=== PATIENT | female | born 1950 | race Caucasian/White ===

== ENCOUNTER 2017-06-05 05:56 | Day surgery (SDC) | payer MEDICARE ==
[2017-06-05] MEDS ORDERED: DIPRIVAN 200 MG/20 ML IV ONE (05:57)
[2017-06-05] MEDS ORDERED: Ketamine HCl 50 MG/ML IV ONE (05:57)
[2017-06-05] MEDS ORDERED: Lactated Ringers 1,000 ML IV SCH (06:30)
--- NOTE | 2017-06-05 08:25 | OP ---
SURGERY DATE/TIME: 06/05/2017718 PREOPERATIVE DIAGNOSIS: Anemia. POSTOPERATIVE DIAGNOSIS: 1) Moderate gastritis. 2) Normal colon. PROCEDURES: 1) Esophagogastroduodenoscopy with biopsy. 2) Colonoscopy. SURGEON: Dr. Atwood. ANESTHESIA: Medications were given by the anesthesia department. BRIEF HISTORY: The patient is a 66 year old white female patient of Dr. Garrett who did evaluation on her and found her to be anemic. The patient was felt to need to have endoscopic evaluation for the anemia. She was appraised of the risks of the procedure including the risk of perforation, phlebitis, untoward reaction to medication, bleeding and missed lesions. The patient verbalized her understanding and desired to have the procedure performed. DESCRIPTION OF PROCEDURE: The patient was given the medications by the anesthesia department. She had continuous pulse oximetry, ECG monitoring, intermittent blood pressure monitoring and tidal CO2 monitoring during the examination. She was placed in the left lateral decubitus position. A bite block was placed and the flexible Olympus gastroscope was used to intubate the oropharynx. A view of the larynx was obtained and was normal. The scope was easily passed in the esophagus which was normal throughout its length. The stomach was entered. There was noted to be a hiatal hernia present. The stomach appeared to be erythematous but no erosions or ulcerations were encountered. The scope was passed along the greater curvature of the antrum to the pylorus which was then intubated. Duodenum inspected and found to be normal. The scope was withdrawn towards the stomach again. Retroflex view again demonstrated a hiatal hernia which appeared to be large. Biopsies were obtained from the gastric antrum and from the body of the stomach to observe for any evidence of potential for Helicobacter pylori-type organisms and confirm the presence of gastritis. The scope was removed from the patient. Next, a digital rectal examination was performed and revealed normal anal sphincter tone and no masses. The flexible Olympus pediatric colonoscope was used to intubate the rectum. A view of the colon was developed sequentially to the cecum. Upon insertion and withdrawal, including a retroflex view in the rectum, no mucosal lesions were encountered. The scope was removed from the patient who tolerated the procedure well and was sent back to OP recovery in good condition. The prep was noted to be fair to adequate.
[2017-06-05 08:30] VITALS: O2SAT 99
[2017-06-05 09:27] VITALS: BP 132/76; PULSE 69
== END 2017-06-05 09:00 | disposition home or self-care (01) ==
LOC: SDC 05:56
PROVIDERS: ATTEND Family Medicine
PROC: 0DB68ZX Excision of Stomach, Via Natural or Artificial Opening Endoscopic, Diagnostic (ICD-10-PCS; principal; 2017-06-05)
PROC: 0DJD8ZZ Inspection of Lower Intestinal Tract, Via Natural or Artificial Opening Endoscopic (ICD-10-PCS; 2017-06-05)
DX: K29.70 Gastritis, unspecified, without bleeding (principal); D64.9 Anemia, unspecified; E03.9 Hypothyroidism, unspecified; I25.10 Atherosclerotic heart disease of native coronary artery without angina pectoris
CPT/HCPCS: 00740; 00810; 36415; 88305; J2704

== ENCOUNTER 2017-09-30 15:56 | Emergency (ER) | payer MEDICARE ==
--- NOTE | 2017-09-30 16:52 | ERPHSYRPT ---
- History of Present Illness Time Seen by Provider: 09/30/17 16:49 Source: patient, family Exam Limitations: no limitations Patient Subjective Stated Complaint: pt fell off porch last night, co pain to left foot, Triage Nursing Assessment: pt alert, resp easy, skin w/d pink. has swelling and bruising to left foot and ankle , has strong pedal pulse Physician History: The patient is a 66-year-old female who complains of twisting her left ankle this morning while rushing to call 911 for neighbor. Her left ankle and left foot are both hurting and swollen. She had left foot surgery years ago. Her past medical history is significant for high cholesterol, hypothyroidism, and hypertension. Occurred: this morning Reason for Fall: tripped Injuries/Pain Location: lower extremity (left foot and ankle) Loss of Consciousness: no loss of consciousness Quality: sharpness Severity of Pain-Max: moderate Severity of Pain-Current: moderate Modifying Factors: Improves With: nothing Associated Symptoms (Fall): trouble walking Allergies/Adverse Reactions: Penicillins Allergy (Intermediate, Verified 09/30/17 16:15) Rash Home Medications: Carvedilol 12.5 mg [Coreg 12.5 mg] 12.5 mg PO BID 12/14/13 [History] Pravastatin Sodium 40 mg PO HS 12/14/13 [History] Hydrochlorothiazide 12.5 mg PO DAILY 06/03/17 [History] Levothyroxine Sodium 100 Mcg [Synthroid 100 Mcg] 100 mcg PO DAILY 06/03/17 [History] Hx Tetanus, Diphtheria Vaccination/Date Given: Yes Hx Influenza Vaccination/Date Given: Yes Hx Pneumococcal Vaccination/Date Given: Yes Immunizations Up to Date: Yes - Review of Systems Constitutional: No Fever, No Chills Eyes: No Symptoms Ears, Nose, & Throat: No Symptoms Respiratory: No Cough, No Dyspnea Cardiac: No Chest Pain, No Edema, No Syncope Abdominal/Gastrointestinal: No Abdominal Pain, No Nausea, No Vomiting, No Diarrhea Genitourinary Symptoms: No Dysuria Musculoskeletal: Fall, Injury, Joint Pain, Joint Swelling Skin: No Rash Neurological: No Dizziness, No Focal Weakness, No Sensory Changes Psychological: No Symptoms Endocrine: No Symptoms Hematologic/Lymphatic: No Symptoms Immunological/Allergic: No Symptoms All Other Systems: Reviewed and Negative - Past Medical History Pertinent Past Medical History: Yes Neurological History: Migraines ENT History: No Pertinent History Cardiac History: High Cholesterol, Hypertension, Myocardial Infarction ([place]) Respiratory History: Bronchitis, Pneumonia Endocrine Medical History: Hypothyroidism Musculoskeletal History: Osteoarthritis GI Medical History: No Pertinent History History: No Pertinent History Psycho-Social History: No Pertinent History Female Reproductive Disorders: Fibroids - Past Surgical History Past Surgical History: Yes Neuro Surgical History: No Pertinent History Cardiac: Cardiac Catheterization Respiratory: No Pertinent History Gastrointestinal: No Pertinent History Genitourinary: No Pertinent History Musculoskeletal: Joint Replacement Female Surgical History: Hysterectomy Other Surgical History: total knee replacement Right 2010,left foot - Social History Smoking Status: Never smoker Exposure to second hand smoke: No Drug Use: none Patient Lives Alone: No - Female History Hx Last Menstrual Period: post - Nursing Vital Signs Nursing Vital Signs: Initial Vital Signs Temperature 97.8 F 09/30/17 16:09 Pulse Rate 67 09/30/17 16:09 Respiratory Rate 16 09/30/17 16:09 Blood Pressure 114/75 09/30/17 16:09 O2 Sat by Pulse Oximetry 97 09/30/17 16:09 Pain Scale Pain Intensity 6 - Vince Coma Score Best Eye Response (Vince): (4) open spontaneously Best Verbal Response ([place]): (5) oriented Best Motor Response ([place]): (6) obeys commands Vince Total: 15 - Physical Exam General Appearance: no apparent distress, alert Head Injury: no evidence of injury Eye Exam: PERRL/EOMI ENT Exam: airway nml Neck Exam: normal inspection, No tenderness Respiratory/Chest Exam: normal breath sounds, No chest tenderness, No respiratory distress Cardiovascular Exam: normal heart sounds, regular rate/rhythm Gastrointestinal Exam: soft, No tenderness, No distention, No guarding, No ecchymosis Rectal Exam: not done Back Exam: normal inspection, No vertebral tenderness Extremity Exam: normal inspection, normal range of motion, pelvis stable, No deformities Neurologic Exam: alert, oriented x 3, cooperative, sensation nml, No motor deficits Skin Exam: ecchymosis (left lateral ankle), other (swelling and tenderness to left lateral malleolus) SpO2: 97 Oxygen Delivery: Room Air - Radiology Exams Foot X-ray Interpretation: Interpreted by me, Negative (neg, comp to 10/06/16.), No Fracture, No Subluxation Left Ankle X-ray Interpretation: Interpreted by me, Negative, No Fracture, No Subluxation, Nml Alignment Ordered Tests: Active Orders 24 hr Category Date Time Status ANKLE (3 VIEWS) Stat Exams 09/30/17 17:10 Taken FOOT (MINIMUM 3 VIEWS) Stat Exams 09/30/17 17:10 Taken - Progress Progress: unchanged Counseled pt/family regarding: rad results - Departure Time of Disposition: 17:38 Departure Disposition: Home Clinical Impression: Left ankle sprain Condition: Stable Critical Care Time: No Referrals: JOHNATHAN FRANKS MD [Primary Care Provider] - Additional Instructions: You have a left ankle sprain. You were given Toradol 60 mg by IM injection in the ER. An Lauro bandage was applied which you can use as needed. Take Aleve and Tylenol as needed. Elevate the ankle to help reduce swelling. Apply ice for 10-15 minutes 2-3 times a day for the next 2 days. Follow-up as needed.
[2017-09-30 17:20] VITALS: BP 163/63
[2017-09-30] MEDS ORDERED: TORAdol 30 mg Injection IM ONE (17:39)
[2017-09-30] MEDS ORDERED: TORAdol 30 mg Injection ONE (17:43)
[2017-09-30 18:14] VITALS: PULSE 88; O2SAT 96
--- NOTE | 2017-10-01 11:30 | XRAY ---
Indication: Pain following fall. Comparison: March 13, 2012. 3 views of the left ankle demonstrates mild soft tissue swelling without acute fracture, dislocation, or suspicious bony lesions. Left foot reported separately.
--- NOTE | 2017-10-01 11:30 | XRAY ---
Indication: Pain following fall. Comparison: October 06, 2016. 3 nonweightbearing views of the left foot again demonstrates old fifth metatarsal fracture with intact orthopedic screw. No new/acute bony, articular, or soft tissue abnormalities.
== END 2017-09-30 18:14 | disposition home or self-care (01) ==
LOC: ED 15:56
DX: S93.402A Sprain of unspecified ligament of left ankle, initial encounter (principal); M79.672 Pain in left foot; W17.89XA Other fall from one level to another, initial encounter; E78.00 Pure hypercholesterolemia, unspecified; I10 Essential (primary) hypertension; E03.9 Hypothyroidism, unspecified; Z79.899 Other long term (current) drug therapy
CPT/HCPCS: 73610; 73630; 96372; 99283; 99284; J1885

== ENCOUNTER 2021-11-18 09:31 | Emergency (ER) | payer MEDICARE ==
--- NOTE | 2021-11-18 10:35 | XRAY ---
Indication: Cough and weakness. Portable apical lordotic chest remains clear again with a few incidental calcified granulomas. Heart not enlarged. Bony thorax intact again with mild osteopenia, degenerative changes, dextroscoliosis, and surgical clips base of neck. No new/acute abnormalities.
--- NOTE | 2021-11-18 10:42 | ERPHSYRPT ---
- History of Present Illness Source: patient Exam Limitations: no limitations Patient Subjective Stated Complaint: weakness Triage Nursing Assessment: Patient brought back to ED via w/c and transferred self to bed. Patient A+O X3. Patient's skin pale, warm and dry. Patient complains of cough, weakness, bodyaches and fatigue since yesterday. Patient's lungs clear a/p anmol. Patient has known exposure to COVID last week. Physician History: 71 yo wf w cough/coryza/lethargy/ST x 1 day. Pt is fully vaxxed and boosted. She denies N/V/D/chest pain/melena/hematochezia/dysuria/hematuria. Timing/Duration: yesterday Cough Quality/Degree: dry cough Possible Cause: no prior episodes Modifying Factors: Improves With: coughing Associated Symptoms: cough, nasal congestion, nasal drainage, sore throat, No fever, No chills, No chest pain/soreness, No dizziness, No earache, No facial pain, No headache, No lightheadedness, No shortness of breath, No sinus infection Allergies/Adverse Reactions: Penicillins Allergy (Intermediate, Verified 11/18/21 09:46) Rash Home Medications: Carvedilol 12.5 mg [Coreg 12.5 mg] 12.5 mg PO BID 12/14/13 [History] Levothyroxine Sodium 100 Mcg [Synthroid 100 Mcg] 100 mcg PO DAILY 06/03/17 [History] hydroCHLOROthiazide [Hydrochlorothiazide] 12.5 mg PO DAILY 06/03/17 [History] Hx Tetanus, Diphtheria Vaccination/Date Given: Yes Hx Influenza Vaccination/Date Given: Yes Hx Pneumococcal Vaccination/Date Given: No Immunizations Up to Date: Yes Travel Risk - International Travel Have you traveled outside of the country in past 3 weeks: No - Coronavirus Screening Are you exhibiting any of the following symptoms?: Yes Symptoms: Cough: New Onset, Shortness of Breath, Headaches/Body Aches/Fatigue Close contact with a COVID-19 positive Pt in past 14-21 Days: Yes - Vaccine Status Have you recieved a Covid-19 vaccination: Yes Residential Property Manager: Moderna - Vaccination Dates Date of 2cond Vaccination (if applicable): 01/04/2021 Comment: Booster 08/14/2021 - Review of Systems Constitutional: No Symptoms, Fatigue, Lethargy, Malaise Eyes: No Symptoms Ears, Nose, & Throat: No Symptoms, Nose Congestion, Nose Discharge Respiratory: No Symptoms, Cough Cardiac: No Symptoms Abdominal/Gastrointestinal: No Symptoms Genitourinary Symptoms: No Symptoms Musculoskeletal: No Symptoms Skin: No Symptoms Neurological: No Symptoms Psychological: No Symptoms Endocrine: No Symptoms Hematologic/Lymphatic: No Symptoms Immunological/Allergic: No Symptoms - Past Medical History Pertinent Past Medical History: Yes Neurological History: Migraines ENT History: No Pertinent History Cardiac History: High Cholesterol, Hypertension, Myocardial Infarction ([place]) Respiratory History: Bronchitis, Pneumonia Endocrine Medical History: Hypothyroidism Musculoskeletal History: Osteoarthritis GI Medical History: No Pertinent History History: No Pertinent History Psycho-Social History: No Pertinent History Female Reproductive Disorders: Fibroids - Past Surgical History Past Surgical History: Yes Neuro Surgical History: No Pertinent History Cardiac: Cardiac Catheterization Respiratory: No Pertinent History Gastrointestinal: No Pertinent History Genitourinary: No Pertinent History Musculoskeletal: Joint Replacement Female Surgical History: Hysterectomy Other Surgical History: total knee replacement Right 2010,left foot hardware placed - Social History Smoking Status: Never smoker Exposure to second hand smoke: No Drug Use: none Patient Lives Alone: No Significant Family History: no pertinent family hx - Female History Hx Now: No - Nursing Vital Signs Nursing Vital Signs: Initial Vital Signs Temperature 99.0 F 11/18/21 09:47 Pulse Rate 98 H 11/18/21 09:47 Respiratory Rate 18 11/18/21 09:47 Blood Pressure 110/74 11/18/21 09:47 O2 Sat by Pulse Oximetry 99 11/18/21 09:47 Pain Scale Pain Intensity 5 WNL - Physical Exam General Appearance: no apparent distress Eye Exam: PERRL/EOMI, eyes nml inspection Ears, Nose, Throat Exam: normal ENT inspection, TMs normal, pharynx normal, moist mucous membranes Neck Exam: normal inspection, non-tender, supple, full range of motion, No meningismus, No mass, No Brudzinski, No Kernig's, No carotid bruit Respiratory Exam: normal breath sounds, lungs clear, airway intact, No chest tenderness, No respiratory distress Cardiovascular Exam: regular rate/rhythm, normal heart sounds, normal peripheral pulses, No murmur Gastrointestinal/Abdomen Exam: soft, normal bowel sounds, No tenderness Back Exam: normal inspection, normal range of motion, No CVA tenderness, No vertebral tenderness Extremity Exam: normal inspection, normal range of motion Neurologic Exam: alert, oriented x 3, cooperative, senior lead developer II-XII nml as tested, normal mood/affect, nml cerebellar function, nml station & gait, sensation nml, No motor deficits, No sensory deficit Skin Exam: normal color, warm, dry, No rash Lymphatic Exam: No adenopathy SpO2 Interpretation: normal SpO2: 99 O2 Delivery: Room Air - Course Nursing assessment & vital signs reviewed: Yes - Radiology Exams Chest X-ray Interpretation: Discussed w/ radiologist (NAD) Ordered Tests: Active Orders 24 hr Category Date Time Status CHEST 1 VIEW (PORTABLE) Stat Exams 11/18/21 10:16 Completed COVID AG-BINAX NOW RAPID TEST Stat Lab 11/18/21 10:25 Completed INFLUENZA A+B NELSON Stat Lab 11/18/21 10:25 Completed Lab/Rad Data: Laboratory Results 11/18/21 11/18/21 Range/Units 10:25 10:25 Influenza Type A Ag NEGATIVE (NEGATIVE) Influenza Type B Ag NEGATIVE (NEGATIVE) SARS-CoV-2 Ag (Rapid) POSITIVE A* (NEGATIVE) - Progress Counseled pt/family regarding: lab results, diagnosis, need for follow-up, rad results - Departure Departure Disposition: Home Clinical Impression: COVID-19 Condition: Stable Critical Care Time: No Referrals: JOHNATHAN FRANKS MD [Primary Care Provider] - Follow up/PCP as directed Instructions: Coronavirus Disease 2019 (COVID-19) ([place]) Additional Instructions: Get a pulse oximeter and monitor oxygen saturation 2-3 times a day Return to ER if oxygen saturation is persistently less than 90% [id number] a day/[id number] a day/Pepcid 40mg a day Follow up with your family
[2021-11-18 10:57] LABS: INFLUENZA A NEGATIVE (NEGATIVE); INFLUENZA B NEGATIVE (NEGATIVE)
[2021-11-18 10:59] LABS: COVID AG -BINAX NOW RAPID TEST POSITIVE (NEGATIVE)
[2021-11-18 11:29] VITALS: BP 118/78; PULSE 98
[2021-11-18 11:38] VITALS: O2SAT 99
== END 2021-11-18 11:43 | disposition home or self-care (01) ==
LOC: ED 09:31
DX: U07.1 COVID-19 (principal); R05.1 Acute cough; J02.9 Acute pharyngitis, unspecified; R53.83 Other fatigue; R09.81 Nasal congestion; Z20.822 Contact with and (suspected) exposure to COVID-19; E78.5 Hyperlipidemia, unspecified; I10 Essential (primary) hypertension; Z79.899 Other long term (current) drug therapy
CPT/HCPCS: 71045; 87400; 99000; 99284

== ENCOUNTER 2024-08-04 10:11 | Day surgery (SDC) | payer MEDICARE ==
--- NOTE | 2024-08-03 10:06 | HP ---
HISTORY AND PHYSICAL HISTORY OF PRESENT ILLNESS: The patient is a 73-year-old, presents with anemia. Last colonoscopy was in 2017 and was normal. That was with Dr. Roa. She sees Dr. Batres for anemia. She has been anemic for years. She has been getting some iron infusions. She does look pale today. She states she is fatigued. She does have a CAT scan scheduled for August. PAST MEDICAL HISTORY: Hypertension, hyperlipidemia, thyroid. HOME MEDICATIONS: B12, B2, carvedilol, levothyroxine, atorvastatin, hydrochlorothiazide. ALLERGIES: Penicillin. PAST SURGICAL HISTORY: Thyroidectomy. SOCIAL HISTORY: Negative. FAMILY HISTORY: Negative. REVIEW OF SYSTEMS: CONSTITUTIONAL: Denies fever or chills. CHEST: Denies shortness of breath. CARDIOVASCULAR: Denies chest pain. ABDOMEN: Denies abdominal pain. PHYSICAL EXAMINATION: GENERAL: No acute distress. CARDIOVASCULAR: Regular rate and rhythm. RESPIRATORY: Nonlabored. No shortness of breath. ABDOMEN: Soft. IMPRESSION: Anemia. PLAN: EGD, colonoscopy with Dr. Rajiv Ruiz. This report was dictated for Dr. Ruiz by Ciera Barahona NP.
[2024-08-04] MEDS ORDERED: Lactated Ringers 1,000 ML IV ONE (10:26)
[2024-08-04] MEDS: Lactated Ringers 1,000 ML IV SCH (10:27)
[2024-08-04] MEDS ORDERED: DIPRIVAN 200 MG/20 ML IV ONE ×2 (14:04→14:16)
[2024-08-04] MEDS ORDERED: Xylocaine-Mpf 2% 5 Ml Vial ONE (14:04)
[2024-08-04] MEDS ORDERED: Versed 2 MG/2 ML Injection ONE (14:08)
[2024-08-04 15:03] VITALS: RESP 18; TEMP 96.8; O2SAT 97
[2024-08-04 15:14] VITALS: BP 119/84; PULSE 61
--- NOTE | 2024-08-07 21:27 | OP ---
SURGERY DATE/TIME: 08/04/2024 [id number] PREOPERATIVE DIAGNOSIS: Anemia. POSTOPERATIVE DIAGNOSES: 1) Esophagogastroduodenoscopy, mild gastritis. 2) Colonoscopy, grossly normal. PROCEDURE: EGD and colonoscopy. SURGEON: Rajiv Ruiz MD INDICATIONS: Patient has anemia. DESCRIPTION OF PROCEDURE AND FINDINGS: Patient was taken to endoscopy. Left lateral decubitus position. Scope introduced. Esophagus normal down to EG junction. Minimal esophagitis. Fundus, body, and antrum, there was mild gastritis. Pylorus normal. Duodenal bulb normal. Second portion normal, satisfactorily from below. Scope withdrawn. Anal digital examination was satisfactory. Scope was introduced. Scope advanced over to the cecum. Base of the cecum, ileocecal valve, and appendiceal orifice were normal. Ascending, hepatic, transverse, splenic, descending, sigmoid, rectum and anus normal exam. Patient tolerated the procedure satisfactorily. Follow up in 5 years.
== END 2024-08-04 15:15 | disposition home or self-care (01) ==
LOC: SDC 10:11
PROVIDERS: ATTEND Surgery
DX: K29.70 Gastritis, unspecified, without bleeding (principal); D64.9 Anemia, unspecified
CPT/HCPCS: J2250; J2704

== ENCOUNTER 2024-09-17 15:30 | Emergency (ER) | payer MEDICARE ==
--- NOTE | 2024-09-17 18:23 | ERPHSYRPT ---
- History of Present Illness Time Seen by Provider: 09/17/24 18:22 Source: patient, family Exam Limitations: no limitations Physician History: This is a 73-year-old white female patient who has known right lower molar dental fracture in April 2024. This morning, she woke up with tender swollen right lower jaw. The greatest amount of tenderness and swelling is in the area of the fractured tooth. Patient had a low-grade fever at home. Patient contacted 3 different dental offices and has an appointment at all 3. Each 1 is scheduled out till November but she is hoping that one of them will be able to see her sometime next week with a cancellation. Patient has no difficulty swallowing. She has no stridor. She has no difficulty breathing. Patient has a history of hyperlipidemia, hypothyroidism, hypertension, migraine headaches and bronchitis. Patient states that she has had a rash with penicillin and Rocephin in the past. She denies chest pain and she denies shortness of breath. Patient states that she is just trying to use ice pack to the area. She avoids ibuprofen because it upsets her stomach. Timing/Duration: abrupt onset, this morning Severity: mild ENT Location: dental (Moderate) Prearrival Treatment: no prearrival treatment Modifying Factors: Improves With: other (Chewing worsens the pain) Associated Symptoms: facial pain/swelling (Right side lower jaw), tooth pain (Right fractured molar) Allergies/Adverse Reactions: Penicillins Allergy (Intermediate, Verified 09/17/24 18:42) Rash Home Medications: Carvedilol 12.5 mg [Coreg 12.5 mg] 12.5 mg PO BID 12/14/13 [History] Levothyroxine Sodium 100 Mcg [Synthroid 100 Mcg] 112 mcg PO DAILY 06/03/17 [History] Alendronate Sodium 70 mg [Fosamax 70 MG] 70 mg PO WEEKLY 09/17/24 [History] Atorvastatin Calcium 10 mg PO DAILY 09/17/24 [History] hydroCHLOROthiazide [Hydrochlorothiazide] 12.5 mg PO DAILY 09/17/24 [History] Hx Tetanus, Diphtheria Vaccination/Date Given: Yes Hx Influenza Vaccination/Date Given: Yes Hx Pneumococcal Vaccination/Date Given: No Travel Risk - International Travel Have you traveled outside of the country in past 3 weeks: No - Emerging Infectious Disease Are you exhibiting symptoms associated with any current EIDs: No - Review of Systems Constitutional: No Symptoms Eyes: No Symptoms Respiratory: No Symptoms Cardiac: No Symptoms Abdominal/Gastrointestinal: No Symptoms Genitourinary Symptoms: No Symptoms Musculoskeletal: No Symptoms Skin: No Symptoms Neurological: No Symptoms Psychological: No Symptoms Endocrine: No Symptoms Hematologic/Lymphatic: No Symptoms Immunological/Allergic: No Symptoms All Other Systems: Reviewed and Negative - Past Medical History Pertinent Past Medical History: Yes Neurological History: Migraines ENT History: No Pertinent History Cardiac History: High Cholesterol, Hypertension, Myocardial Infarction ([place]) Respiratory History: Bronchitis, Pneumonia Endocrine Medical History: Hypothyroidism Musculoskeletal History: Osteoarthritis GI Medical History: No Pertinent History History: No Pertinent History Psycho-Social History: No Pertinent History Female Reproductive Disorders: Fibroids - Past Surgical History Past Surgical History: Yes Neuro Surgical History: No Pertinent History Cardiac: Cardiac Catheterization Respiratory: No Pertinent History Gastrointestinal: No Pertinent History Genitourinary: No Pertinent History Musculoskeletal: Joint Replacement Female Surgical History: Hysterectomy Other Surgical History: total knee replacement Right 2010,left foot hardware placed. thyroidectomy Significant Family History: no pertinent family hx - Social History Smoking Status: Never smoker Exposure to second hand smoke: No Drug Use: none Patient Lives Alone: No - Nursing Vital Signs Nursing Vital Signs: Initial Vital Signs Temperature 99.5 F 09/17/24 18:23 Pulse Rate 85 09/17/24 18:23 Respiratory Rate 18 09/17/24 18:23 Blood Pressure 148/81 09/17/24 18:23 O2 Sat by Pulse Oximetry 100 09/17/24 18:23 Pain Scale Pain Intensity 10 - Physical Exam General Appearance: no apparent distress, alert, anxiety Eye Exam: bilateral eye: normal inspection, PERRL, EOMI Ear Exam: bilateral ear: auricle normal Nasal Exam: normal inspection Throat Exam: dental tenderness (Right lower molar fracture down to the gingival line with gingival swelling and tenderness to palpation. No expressible pus in this area.), moist mucus membranes, No uvula swelling, No voice changes Neck Exam: normal inspection, non-tender, supple, full range of motion Cardiovascular/Respiratory Exam: chest non-tender, no respiratory distress Abdominal Exam: non-tender Neurologic Exam: alert, oriented x 3, cooperative, valet II-XII nml as tested, nml cerebellar function, nml station & gait, sensation nml Skin Exam: normal color, warm, dry SpO2 Interpretation: normal O2 Delivery: Room Air - Course Nursing assessment & vital signs reviewed: Yes Ordered Tests: Medication Summary Discontinued Medications Generic Name Dose Route Start Last Admin Trade Name Blessing PRN Reason Stop Dose Admin Clindamycin HCl 300 mg 09/17/24 19:24 Clindamycin Hcl 150 Mg Capsule PO 09/17/24 19:25 STAT ONE Oxycodone/Acetaminophen 1 tab 09/17/24 19:23 Oxycodone Hcl/Apap 5 Mg/325 Mg Tablet PO 09/17/24 19:24 STAT STA - Progress Progress: unchanged Progress Note: 09/17/24 19:29 My medical decision making and the assignment of low complexity to this patient's medical issue today is based on review of the patient's past medical history, review of the patient's medication list, reviewed patient drug allergy list, history present illness and physical findings on examination. The workup in this patient does not require radiographic or laboratory studies. Differential diagnosis includes but is not limited to dental fracture, dental infection Counseled pt/family regarding: diagnosis, need for follow-up Medical Desision Making - Diagnostic Testing Diagnostic test were ordered, analyzed, and reviewed by me: No - Risk of complications Low Risk: Low risk of morbidity from additional dx testing or treatment - Departure Departure Disposition: Home Clinical Impression: Fractured tooth, Dental infection Condition: Stable Critical Care Time: No Referrals: JOHNATHAN FRANKS MD [Primary Care Provider] - Follow up/PCP as directed Additional Instructions: Drink plenty of fluids. Take your antibiotics as prescribed. Call in urgent care dental clinic if you are unable to secure an appointment to see a dentist next week. Prescriptions: Clindamycin HCl 150 mg [Cleocin 150 mg Capsule] 2 cap PO QID #56 cap
[2024-09-17 18:39] VITALS: TEMP 99.5
[2024-09-17] MEDS ORDERED: CLEOCIN 150 MG CAPSULE ONE (19:27)
[2024-09-17] MEDS ORDERED: PERCOCET TABLET 5/325MG ONE ×2 (19:27→19:34)
[2024-09-17] MEDS: PERCOCET TABLET 5/325MG PO STA ×2 (19:28→19:36)
[2024-09-17] MEDS: CLEOCIN 150 MG CAPSULE PO ONE (19:28)
[2024-09-17 19:39] VITALS: BP 143/55; PULSE 80; RESP 18; O2SAT 99
== END 2024-09-17 19:52 | disposition home or self-care (01) ==
LOC: ED 15:30
DX: S02.5XXA Fracture of tooth (traumatic), initial encounter for closed fracture (principal); K04.7 Periapical abscess without sinus; K08.89 Other specified disorders of teeth and supporting structures; E78.5 Hyperlipidemia, unspecified; I10 Essential (primary) hypertension; Z79.899 Other long term (current) drug therapy
CPT/HCPCS: 99282; 99283; A9270-GY

== ENCOUNTER 2024-11-11 16:31 | Observation (INO) | payer MEDICARE ==
--- NOTE | 2024-11-11 19:48 | ERPHSYRPT ---
- History of Present Illness Time Seen by Provider: 11/11/24 19:36 Historian: patient Exam Limitations: no limitations Patient Subjective Stated Complaint: states vomiting and diarrhea for at least a week. unable to hold any fluids down. no fever, states tested negation flu and covid. Triage Nursing Assessment: pt ambuled to room 9, slow steady gait, nauseous, given emesis bag, rocking in bed d/t nausea, intermittent coughing and gagging. VSS. resp easy, lungs clear, resp easy Physician History: 74-year-old female with history of hypertension, hyperlipidemia, hypothyroidism presented in the ER with 1 week nausea dry heaving, gen abd pain 3/10 , loose watery stool with no hematochezia , negative flu/covid at pcp today, feels dehydrated fatigued and tired. Denies any chest pain palpitations or shortness of breath but feels thirsty. Denies any known sick contact. Allergies/Adverse Reactions: Penicillins Allergy (Intermediate, Verified 09/17/24 18:42) Rash Home Medications: Carvedilol 12.5 mg [Coreg 12.5 mg] 12.5 mg PO BID 12/14/13 [History] Levothyroxine Sodium 100 Mcg [Synthroid 100 Mcg] 112 mcg PO DAILY 06/03/17 [History] Alendronate Sodium 70 mg [Fosamax 70 MG] 70 mg PO WEEKLY 09/17/24 [History] Atorvastatin Calcium 10 mg PO DAILY 09/17/24 [History] hydroCHLOROthiazide [Hydrochlorothiazide] 12.5 mg PO DAILY 09/17/24 [History] Hx Tetanus, Diphtheria Vaccination/Date Given: No Hx Influenza Vaccination/Date Given: Yes Hx Pneumococcal Vaccination/Date Given: No Immunizations Up to Date: Yes Travel Risk - International Travel Have you traveled outside of the country in past 3 weeks: No - Emerging Infectious Disease Are you exhibiting symptoms associated with any current EIDs: No - Review of Systems Constitutional: Fatigue, Weakness Eyes: No Symptoms Ears, Nose, & Throat: No Symptoms Respiratory: Cough Cardiac: No Symptoms Abdominal/Gastrointestinal: Abdominal Pain, Nausea, Diarrhea Genitourinary Symptoms: No Symptoms Musculoskeletal: Arthralgias Skin: No Symptoms Neurological: No Symptoms Hematologic/Lymphatic: No Symptoms Immunological/Allergic: No Symptoms - Past Medical History Pertinent Past Medical History: Yes Neurological History: Migraines ENT History: No Pertinent History Cardiac History: High Cholesterol, Hypertension, Myocardial Infarction ([place]) Respiratory History: Bronchitis, Pneumonia Endocrine Medical History: Hypothyroidism Musculoskeletal History: Osteoarthritis GI Medical History: No Pertinent History History: No Pertinent History Psycho-Social History: No Pertinent History Female Reproductive Disorders: Fibroids Other Medical History: iron deficiency - Past Surgical History Past Surgical History: Yes Neuro Surgical History: No Pertinent History Cardiac: Cardiac Catheterization Respiratory: No Pertinent History Gastrointestinal: No Pertinent History Genitourinary: No Pertinent History Musculoskeletal: Joint Replacement Female Surgical History: Hysterectomy Other Surgical History: total knee replacement Right 2010,left foot hardware placed. thyroidectomy Significant Family History: no pertinent family hx - Social History Smoking Status: Never smoker Exposure to second hand smoke: No Drug Use: none Patient Lives Alone: No - Social Determinants of Health Will the patient participate in the screening: Yes Do you worry about a steady place to live?: No Do you have any problems with any of the following?: No known problems In the past 12 months,have you had to go without utilities?: No Transportation Issues: No Has anyone in your support network made you feel unsafe?: No Have you or anyone in your house had to go without enough: No - Nursing Vital Signs Nursing Vital Signs: Initial Vital Signs Temperature 98.2 F 11/11/24 17:50 Pulse Rate 109 H 11/11/24 17:50 Respiratory Rate 18 11/11/24 17:50 Blood Pressure 113/68 11/11/24 17:50 O2 Sat by Pulse Oximetry 99 11/11/24 17:50 Pain Scale Pain Intensity 0 - Physical Exam General Appearance: no apparent distress, alert Eye Exam: PERRL/EOMI Ears, Nose, Throat Exam: normal ENT inspection Neck Exam: normal inspection, non-tender, supple, full range of motion Respiratory Exam: normal breath sounds, lungs clear Cardiovascular Exam: normal heart sounds, tachycardia Gastrointestinal/Abdomen Exam: soft, normal bowel sounds, tenderness (mild gen ), No distention, No guarding Back Exam: normal inspection Extremity Exam: normal inspection, normal range of motion Neurologic Exam: alert, oriented x 3, cooperative Skin Exam: normal color SpO2 Interpretation: normal SpO2: 98 O2 Delivery: Room Air Ordered Tests: Active Orders 24 hr Category Date Time Status IV Insertion STAT Care 11/11/24 19:45 Active NPO (ED) STAT Care 11/11/24 19:45 Active ABDOMEN AND PELVIS W/0 CONTRAS [CT] Stat Exams 11/11/24 19:45 Taken BLOOD CULTURE Stat Lab 11/11/24 20:50 Received CBC W DIFF Stat Lab 11/11/24 19:40 Completed CMP Stat Lab 11/11/24 19:40 Completed LIPASE Stat Lab 11/11/24 19:40 Completed Lactic Acid Stat Lab 11/11/24 20:10 Completed MAGNESIUM Stat Lab 11/11/24 19:50 Completed Manual Differential NC Stat Lab 11/11/24 19:40 Completed PROCALCITONIN Stat Lab 11/11/24 19:50 Completed UA W/RFX UR CULTURE Stat Lab 11/11/24 19:45 Ordered Medication Summary Generic Name Dose Route Start Last Admin Trade Name Freq PRN Reason Stop Dose Admin Levofloxacin/Dextrose 750 mg in 150 mls @ 100 mls/hr 11/11/24 22:06 Levofloxacin 750mg/150ml D5w IV 11/11/24 23:35 STAT STA Metronidazole 500 mg in 100 mls @ 200 mls/hr 11/11/24 22:06 11/11/24 22:26 Flagyl 500 Mg Ivpb IV 11/11/24 22:35 200 ml/hr STAT STA 200 mls/hr Administration Sodium Chloride 1,000 mls @ 125 mls/hr 11/11/24 22:15 11/11/24 22:24 Sodium Chloride 0.9% 1000 Ml IV 12/11/24 22:14 125 mls/hr .Q8H JENNIFER Administration Discontinued Medications Generic Name Dose Route Start Last Admin Trade Name Marquezq PRN Reason Stop Dose Admin Sodium Chloride 1,000 mls @ 999 mls/hr 11/11/24 19:45 11/11/24 21:51 Sodium Chloride 0.9% 1000 Ml IV 11/11/24 20:45 Infused .Q1H1M STA Infusion Sodium Chloride Confirm 11/11/24 19:49 Sodium Chloride 0.9% 1000 Ml Administered 11/11/24 19:50 Dose 1,000 mls @ ud .ROUTE .STK-MED ONE Metronidazole Confirm 11/11/24 22:21 Flagyl 500 Mg Ivpb Administered 11/11/24 22:22 Dose 500 mg in 100 mls @ ud IV .STK-MED ONE Ondansetron HCl 4 mg 11/11/24 19:45 11/11/24 19:55 Ondansetron Hcl 4 Mg/2 Ml Vial IV 11/11/24 19:46 4 mg STAT ONE Administration Ondansetron HCl Confirm 11/11/24 19:49 Ondansetron Hcl 4 Mg/2 Ml Vial Administered 11/11/24 19:50 Dose 4 mg .ROUTE .STK-MED ONE Potassium Chloride 40 meq 11/11/24 20:11 11/11/24 20:38 Potassium Chloride Tab 10 Meq Tab PO 11/11/24 20:12 40 meq STAT ONE Administration Potassium Chloride Confirm 11/11/24 20:36 Potassium Chloride Tab 10 Meq Tab Administered 11/11/24 20:37 Dose 40 meq .ROUTE .STK-MED ONE Lab/Rad Data: Laboratory Result Diagrams 11/11/24 19:40 11/11/24 19:40 Laboratory Results 11/11/24 11/11/24 11/11/24 Range/Units 20:10 19:50 19:40 WBC (3.98-10.04) x10^3/uL RBC (3.93-5.22) x10^6/uL Hgb (11.2-15.7) g/dL Hct (34.1-44.9) % MCV (79.4-94.8) fL MCH (25.6-32.2) pg MCHC (32.2-35.5) g/dL RDW (11.7-14.4) % Plt Count (182-369) x10^3/uL MPV (9.4-12.3) fL Segmented Neutrophils (34.0-71.1) % Band Neutrophils (0.0-2.0) % Lymphocytes (Manual) (19.3-51.7) % Monocytes (Manual) (4.7-12.5) % Platelet Estimate (NORMAL) RBC Morphology Anisocytosis Sodium 131 L (135-145) mmol/L Potassium 3.0 L* (3.5-5.1) mmol/L Chloride 98 (98-107) mmol/L Carbon Dioxide 23 (22-30) mmol/L Anion Gap 12.6 (5-15) MEQ/L BUN 24 H (7-17) mg/dL Creatinine 1.04 (0.52-1.04) mg/dL Estimated GFR 56.1 ML/MIN Glucose 146 H (74-106) mg/dL Lactic Acid 1.9 (0.4-2.0) Calcium 8.6 (8.4-10.2) mg/dL Magnesium 2.1 (1.6-2.3) mg/dL Total Bilirubin 0.80 (0.2-1.3) mg/dL AST 23 (14-36) U/L ALT 18 (0-35) U/L Alkaline Phosphatase 162 H (38-126) U/L Serum Total Protein 6.7 (6.3-8.2) g/dL Albumin 3.7 (3.5-5.0) g/dL Lipase 20 L (23-300) U/L Procalcitonin 0.369 H (0.030-0.080) ng/mL 11/11/24 Range/Units 19:40 WBC 25.3 H* (3.98-10.04) x10^3/uL RBC 3.70 L (3.93-5.22) x10^6/uL Hgb 9.7 L (11.2-15.7) g/dL Hct 30.0 L (34.1-44.9) % MCV 81.1 (79.4-94.8) fL MCH 26.2 (25.6-32.2) pg MCHC 32.3 (32.2-35.5) g/dL RDW 18.3 H (11.7-14.4) % Plt Count 596 H (182-369) x10^3/uL MPV 9.1 L (9.4-12.3) fL Segmented Neutrophils 75 H (34.0-71.1) % Band Neutrophils 15 H (0.0-2.0) % Lymphocytes (Manual) 4 L (19.3-51.7) % Monocytes (Manual) 6 (4.7-12.5) % Platelet Estimate INCREASED (NORMAL) RBC Morphology ABNORMAL Anisocytosis 2+ Sodium (135-145) mmol/L Potassium (3.5-5.1) mmol/L Chloride (98-107) mmol/L Carbon Dioxide (22-30) mmol/L Anion Gap (5-15) MEQ/L BUN (7-17) mg/dL Creatinine (0.52-1.04) mg/dL Estimated GFR ML/MIN Glucose (74-106) mg/dL Lactic Acid (0.4-2.0) Calcium (8.4-10.2) mg/dL Magnesium (1.6-2.3) mg/dL Total Bilirubin (0.2-1.3) mg/dL AST (14-36) U/L ALT (0-35) U/L Alkaline Phosphatase (38-126) U/L Serum Total Protein (6.3-8.2) g/dL Albumin (3.5-5.0) g/dL Lipase (23-300) U/L Procalcitonin (0.030-0.080) ng/mL - Progress Progress: improved Progress Note: 11/11/24 22:34 74-year-old is evaluated in the ER for 1 week history of nausea dry heaving, diarrhea/loose stools. Decreased oral intake and feeling weak fatigued tired and dehydrated. She is given fluids and symptomatic treatment, on reevaluation she is feeling much better. No peritoneal signs on repeated evaluation. Workup showed white count of 25, lactate of 1.9 and mildly elevated procalcitonin of 0.3. Chemistries with mildly low potassium of 3.0, started on oral replacement, has normal magnesium. CT abdomen pelvis finding consistent with colitis, patient did have a bowel movement while in the ER and it was soft. Less likely C. difficile colitis and patient does not have any history of recent antibiotics intake. I have started her on Levaquin and Flagyl. Will continue with IV fluids and I believe patient will benefit with observation admission. I have shared the results of workup with patient and family and plan of admission which they understand and agree. Discussed with hospitalist Dr. Hester, reviewed history, workup and agreed with admission. Discussed with : Other (Dr. Hester hospitalist) Will see patient in: hospital (observation) Counseled pt/family regarding: lab results, diagnosis, rad results Medical Desision Making - Independent Historian Additional History obtained from: Spouse, Child - Discussion of managment Care discussed with:: hospitalist Reviewed:: Test results Agreed on:: Treatment plan, place in obs Will see patient: in hospital - Diagnostic Testing Diagnostic test were ordered, analyzed, and reviewed by me: Yes Radiological Interpretation: Reviewed by me, Teleradiologist Report - Risk of complications The pt has a mod risk of morbidity or mortality based on: Need for prescription drug management The pt has a high risk of morbidity or mortality based on: Decision regarding hospitilization or escalation of hosp level of care - Departure Departure Disposition: Observation Clinical Impression: Infectious colitis, Hypokalemia Condition: Stable Critical Care Time: No Referrals: JOHNATHAN FRANKS MD [Primary Care Provider] - Follow up/PCP as directed
[2024-11-11] MEDS ORDERED: Zofran 4 MG/2 ML VIAL ONE (19:49)
[2024-11-11] MEDS ORDERED: Sodium Chloride 0.9% 1000 ML 1,000 ML ONE (19:49)
[2024-11-11 19:50] LABS: Hemoglobin 9.7 g/dL (11.2-15.7); Mean Cell Volume 81.1 fL (79.4-94.8); Mean Corpuscular Hemoglobin 26.2 pg (25.6-32.2); Mean Corpuscular Hgb Concent. 32.3 g/dL (32.2-35.5); Mean Platelet Volume 9.1 fL (9.4-12.3); Platelet Count 596 x10^3/uL (182-369); Red Cell Distribution Width 18.3 % (11.7-14.4)
[2024-11-11] MEDS: Sodium Chloride 0.9% 1000 ML 1,000 ML IV STA (19:53)
[2024-11-11 19:54] LABS: ALBUMIN 3.7 g/dL (3.5-5.0); ANION GAP 12.6 MEQ/L (5-15); BILIRUBIN,TOTAL 0.8 mg/dL (0.2-1.3); Calcium 8.6 mg/dL (8.4-10.2); Creatinine 1 1.04 mg/dL (0.52-1.04); EST GLOMERULAR FILTRATION RATE 56.1 ML/MIN; Total Protein 6.7 g/dL (6.3-8.2)
[2024-11-11] MEDS: Zofran 4 MG/2 ML VIAL IV ONE (19:55)
[2024-11-11 20:10] LABS: White Blood Count 25.3 x10^3/uL (3.98-10.04)
[2024-11-11] MEDS ORDERED: Klor Con ONE (20:36)
[2024-11-11] MEDS: Klor Con PO ONE (20:38)
[2024-11-11 21:16] LABS: MAGNESIUM 2.1 mg/dL (1.6-2.3); PROCALCITONIN 0.369 ng/mL (0.030-0.080)
[2024-11-11] MEDS ORDERED: FLAGYL 500 MG IVPB 500 MG/100 ML BAG IV ONE (22:21)
[2024-11-11] MEDS: Sodium Chloride 0.9% 1000 ML 1,000 ML IV SCH (22:24)
[2024-11-11 22:26] LABS: ANISOCYTOSIS 2+; BAND 15 % (0.0-2.0); Lymphocytes 4 % (19.3-51.7); Monocyte 6 % (4.7-12.5); Neutrophils 75 % (34.0-71.1); Platelet Estimate INCREASED (NORMAL); Total Cells Counted 100
[2024-11-11] MEDS: FLAGYL 500 MG IVPB 500 MG/100 ML BAG IV STA (22:26)
--- NOTE | 2024-11-11 23:09 | PCM.HP ---
History of Present Illness - Chief Complaint Chief Complaint: Infectious colitis, hypokalemia Date: 11/11/24 History of Present Illness: is a 74 year old female With past medical history significant for hypertension, hyperlipidemia, who came to ER complaining of nausea vomiting and inability to tolerate anything p.o. for last 1 week duration.Patient told me she has been sick for almost a week complaining of having vomiting without any abdominal pain. She did complain of having multiple loose bowel movement. She is not able to keep anything down. Denied any chest pain shortness of breath no other symptoms reported . In the ER initial blood pressure was 113/68 patient was afebrile with pulse of 109. As well as blood workup concern white cell count 25.3 hemoglobin 9.7 platelets 596. Sodium 131 potassium 3.0 chloride 98 bicarb 23 BUN 24 creatinine 1.04 lactic acid 1.9 magnesium 2.[address] abdomen pelvis consistent with colitis patient admitted for acute colitis - Review of Systems All Other Systems: Reviewed and Negative (14 systems reviewed and marked ve except mentioned in [facility]UNI) Medications & Allergies Home Medications: Home Medication List Carvedilol 12.5 mg [Coreg 12.5 mg] 12.5 mg PO BID 12/14/13 [History Confirmed 11/11/24] Levothyroxine Sodium 100 Mcg [Synthroid 100 Mcg] 112 mcg PO DAILY 06/03/17 [History Confirmed 11/11/24] Alendronate Sodium 70 mg [Fosamax 70 MG] 70 mg PO WEEKLY 09/17/24 [History Confirmed 11/11/24] Atorvastatin Calcium 10 mg PO DAILY 09/17/24 [History Confirmed 11/11/24] hydroCHLOROthiazide [Hydrochlorothiazide] 12.5 mg PO DAILY 09/17/24 [History Confirmed 11/11/24] Allergies/Adverse Reactions: Allergies Allergy/AdvReac Type Severity Reaction Status Date / Time Penicillins Allergy Intermediate Rash Verified 09/17/24 18:42 - Past Medical History Past Medical History: Yes Neurological History: Migraines ENT History: No Pertinent History Cardiac History: High Cholesterol, Hypertension, Myocardial Infarction ([place]) Respiratory History: Bronchitis, Pneumonia Endocrine Medical History: Hypothyroidism Musculoskelatal History: Osteoarthritis GI Medical History: No Pertinent History History: No Pertinent History Pyscho-Social History: No Pertinent History Reproductive Disorders: Fibroids Comment: iron deficiency - Past Surgical History Past Surgical History: Yes Neuro Surgical History: No Pertinent History Cardiac History: Cardiac Catheterization Respiratory Surgery: No Pertinent History GI Surgical History: No Pertinent History Genitourinary Surgical Hx: No Pertinent History Musculskeletal Surgical Hx: Joint Replacement Female Surgical History: Hysterectomy Other Surgical History: total knee replacement Right 2011,left foot hardware placed. thyroidectomy Significant Family History: no pertinent family hx - Social History Smoking Status: Never smoker Exposure to second hand smoke: No Alcohol: None Drug Use: none - Social Determinants of Health Will the patient participate in the screening: Yes Do you worry about a steady place to live?: No Do you have any problems with any of the following?: No known problems In the past 12 months,have you had to go without utilities?: No Have you or anyone in your house had to go without enough: No Transportation Issues: No Has anyone in your support network made you feel unsafe?: No - Physical Exam Vital Signs: Vital Signs - 24 hr Temp Pulse Resp BP BP Pulse Ox 11/11/24 22:37 98 11/11/24 21:45 108 H 18 110/54 98 11/11/24 19:00 91/61 11/11/24 18:30 101/51 98 11/11/24 18:00 109/55 98 11/11/24 17:50 98.2 F 109 H 18 113/68 99 Additional Findings: 11/11/24 23:08 HEENT Old aged, average built in no distress NECK Supple,no thyromegaly, CVS S1+S2 + 0, no murmers RESP Bilateral equal air entry without Crepts/Wheezes heard GIT Soft non tender,non distended Skin, No rah, no Bruises LEGS No Edema PSYCH Normal,mood, judgement and insight NEURO AOX3, no focal deficit Results - Labs Lab/Micro Results: Lab Results-Last 24 Hours 11/11/24 11/11/24 11/11/24 Range/Units 19:40 19:40 19:50 WBC 25.3 H* (3.98-10.04) x10^3/uL RBC 3.70 L (3.93-5.22) x10^6/uL Hgb 9.7 L (11.2-15.7) g/dL Hct 30.0 L (34.1-44.9) % MCV 81.1 (79.4-94.8) fL MCH 26.2 (25.6-32.2) pg MCHC 32.3 (32.2-35.5) g/dL RDW 18.3 H (11.7-14.4) % Plt Count 596 H (182-369) x10^3/uL MPV 9.1 L (9.4-12.3) fL Segmented Neutrophils 75 H (34.0-71.1) % Band Neutrophils 15 H (0.0-2.0) % Lymphocytes (Manual) 4 L (19.3-51.7) % Monocytes (Manual) 6 (4.7-12.5) % Platelet Estimate INCREASED (NORMAL) RBC Morphology ABNORMAL Anisocytosis 2+ Sodium 131 L (135-145) mmol/L Potassium 3.0 L* (3.5-5.1) mmol/L Chloride 98 (98-107) mmol/L Carbon Dioxide 23 (22-30) mmol/L Anion Gap 12.6 (5-15) MEQ/L BUN 24 H (7-17) mg/dL Creatinine 1.04 (0.52-1.04) mg/dL Estimated GFR 56.1 ML/MIN Glucose 146 H (74-106) mg/dL Lactic Acid (0.4-2.0) Calcium 8.6 (8.4-10.2) mg/dL Magnesium 2.1 (1.6-2.3) mg/dL Total Bilirubin 0.80 (0.2-1.3) mg/dL AST 23 (14-36) U/L ALT 18 (0-35) U/L Alkaline Phosphatase 162 H (38-126) U/L Serum Total Protein 6.7 (6.3-8.2) g/dL Albumin 3.7 (3.5-5.0) g/dL Lipase 20 L (23-300) U/L Procalcitonin 0.369 H (0.030-0.080) ng/mL 11/11/24 Range/Units 20:10 WBC (3.98-10.04) x10^3/uL RBC (3.93-5.22) x10^6/uL Hgb (11.2-15.7) g/dL Hct (34.1-44.9) % MCV (79.4-94.8) fL MCH (25.6-32.2) pg MCHC (32.2-35.5) g/dL RDW (11.7-14.4) % Plt Count (182-369) x10^3/uL MPV (9.4-12.3) fL Segmented Neutrophils (34.0-71.1) % Band Neutrophils (0.0-2.0) % Lymphocytes (Manual) (19.3-51.7) % Monocytes (Manual) (4.7-12.5) % Platelet Estimate (NORMAL) RBC Morphology Anisocytosis Sodium (135-145) mmol/L Potassium (3.5-5.1) mmol/L Chloride (98-107) mmol/L Carbon Dioxide (22-30) mmol/L Anion Gap (5-15) MEQ/L BUN (7-17) mg/dL Creatinine (0.52-1.04) mg/dL Estimated GFR ML/MIN Glucose (74-106) mg/dL Lactic Acid 1.9 (0.4-2.0) Calcium (8.4-10.2) mg/dL Magnesium (1.6-2.3) mg/dL Total Bilirubin (0.2-1.3) mg/dL AST (14-36) U/L ALT (0-35) U/L Alkaline Phosphatase (38-126) U/L Serum Total Protein (6.3-8.2) g/dL Albumin (3.5-5.0) g/dL Lipase (23-300) U/L Procalcitonin (0.030-0.080) ng/mL - Radiology Impressions Radiology Exams & Impressions: Radiology Procedures Category Date Time Status ABDOMEN AND PELVIS W/0 CONTRAS [CT] Stat Exams 11/11/24 19:45 Taken Assessment/Plan (1) Infectious colitis Current Visit: Yes Status: Acute Code(s): A09 - INFECTIOUS GASTROENTERITIS AND COLITIS, UNSPECIFIED (2) Hypokalemia Current Visit: Yes Status: Acute Code(s): E87.6 - HYPOKALEMIA (3) Hyperlipidemia Current Visit: No Status: Acute Code(s): E78.5 - HYPERLIPIDEMIA, UNSPECIFIED (4) Hypertension Current Visit: Yes Status: Acute Code(s): I10 - ESSENTIAL (PRIMARY) HYPERTENSION (5) Hypertension Current Visit: Yes Status: Acute Code(s): I10 - ESSENTIAL (PRIMARY) HYPERTENSION Telemedicine Encounter - Telemedicine Encounter Telemedicine Encounter: The entirety of this encounter was performed via Telemedicine"This visit was performed using real-time audio and video connection between my location and thepatients locationwith the assistance of a surrogateat the patients location. Written or verbal consent was obtained from the patient/guardian to perform this visit using[employer] technology. Any patient questions regarding the telemedicine interaction were answered. Sepsis present upon admission Patient was having SIRS positive (leukocytosis,Tachycardia ) source colitis, Lactate reported less than 2 Continue antibiotics keep following up cultures Acute colitis CT showed acute colitis without abscess perforation Continue antibiotics Will keep on clear liquid diet for now Pain management Colonoscopy outpatient once infection gets over Hyponatremia/hypokalemia Due to ongoing nausea vomiting and inability to tolerate p.o. Continue fluids Will replace potassium and recheck in the morning Diarrhea Will rule out for C. difficile Continue supportive therapy with IV fluids Hypertension Blood pressure towards softer side Will keep holding home BP meds for now Hypothyroidism Resumed Levothyroxine Hyperlipidemia Continue home meds DVT prophylaxis SCD/Lovenox CODE STATUS full Discharge planning pending clinical stability. I have reviewed patient lab vitals and imaging in detail question and concerns were addressed
[2024-11-11] MEDS ORDERED: MORPHINE SULFATE 2 MG INJ IV PRN (23:29)
[2024-11-11] MEDS ORDERED: Sodium Chloride 0.9% 1000 ML 1,000 ML IV SCH (23:30)
[2024-11-12] MEDS: Levofloxacin 500MG/100ML D5W 500 MG/100 ML BAG IV SCH ×2 (00:14→21:42)
[2024-11-12] MEDS ORDERED: Klor Con ONE (01:22)
[2024-11-12] MEDS: Klor Con PO ONE (01:27)
[2024-11-12] MEDS: PROTONIX 40 MG IV IV SCH ×2 (01:27→21:42)
[2024-11-12] MEDS: POTASSIUM CHLORIDE 20 mEq IN WATER 100ML 20 MEQ/100 ML BAG IV ONE (01:31)
[2024-11-12] MEDS: LEVOFLOXACIN 750MG/150ML D5W 750 MG/150 ML BAG IV STA (01:31)
--- NOTE | 2024-11-12 05:28 | PCM.NOTE ---
Date and Time: 11/12/24521 Subjective Assessment: is a 74 year old female With past medical history significant for hypertension, hyperlipidemia, who came to ER complaining of nausea vomiting and inability to tolerate anything p.o. for last 1 week duration.Patient told me she has been sick for almost a week complaining of having vomiting without any abdominal pain. She did complain of having multiple loose bowel movement. She is not able to keep anything down. Denied any chest pain shortness of breath no other symptoms reported . In the ER initial blood pressure was 113/68 patient was afebrile with pulse of 109. As well as blood workup concern white cell count 25.3 hemoglobin 9.7 platelets 596. Sodium 131 potassium 3.0 chloride 98 bicarb 23 BUN 24 creatinine 1.04 lactic acid 1.9 magnesium 2.[address] abdomen pelvis consistent with colitis patient admitted for acute colitis. CXR with right costophrenic angle infiltrate versus atelectasis. 11/12: Met with patient bedside. Endorses continued nausea/vomiting and diarrhea (5-6 episodes this morning). Unable to tolerate a diet. Hypokalemia resolved. WBC down-trending now at 22.3. Plan for continued abx levaquin/flagyl and supportive care. - Review of Systems Constitutional: Weakness Eyes: No Symptoms Ears, Nose, & Throat: No Symptoms Respiratory: No Symptoms Cardiac: No Symptoms Abdominal/Gastrointestinal: Abdominal Pain, Nausea, Vomiting, Diarrhea Genitourinary Symptoms: No Symptoms Musculoskeletal: No Symptoms Skin: No Symptoms Neurological: No Symptoms Psychological: No Symptoms Endocrine: No Symptoms Hematologic/Lymphatic: No Symptoms Immunological/Allergic: No Symptoms Objective Exam General Appearance: no apparent distress Neurologic Exam: alert, oriented x 3, cooperative Skin Exam: pale Eye Exam: PERRL Ears, Nose, Throat Exam: normal ENT inspection Neck Exam: normal inspection Respiratory Exam: normal breath sounds, lungs clear Cardiovascular Exam: regular rate/rhythm, normal heart sounds Gastrointestinal/Abdomen Exam: tenderness (diffuse) Extremity Exam: normal inspection, normal range of motion Pelvic Exam: deferred Rectal Exam: deferred Objective Data Vital Signs: Vital Signs - 24 hr Temp Pulse Resp BP BP Pulse Ox 11/12/24 04:00 18 11/12/24 00:44 102 H 18 98 11/12/24 00:00 18 11/11/24 22:59 97.0 F 108 H 18 109/35 99 11/11/24 22:37 98 11/11/24 21:45 108 H 18 110/54 98 11/11/24 19:00 91/61 11/11/24 18:30 101/51 98 11/11/24 18:00 109/55 98 11/11/24 17:50 98.2 F 109 H 18 113/68 99 Pain Assessment - Last Documented Pain Intensity 0 Intake and Output: Intake & Output 11/09/24 11/10/24 11/11/24 11/12/24 11:59 11:59 11:59 11:59 Weight 75.2 kg Lab Results: Lab Results-Last 24 Hours 11/11/24 11/11/24 11/11/24 Range/Units 19:40 19:40 19:50 WBC 25.3 H* (3.98-10.04) x10^3/uL RBC 3.70 L (3.93-5.22) x10^6/uL Hgb 9.7 L (11.2-15.7) g/dL Hct 30.0 L (34.1-44.9) % MCV 81.1 (79.4-94.8) fL MCH 26.2 (25.6-32.2) pg MCHC 32.3 (32.2-35.5) g/dL RDW 18.3 H (11.7-14.4) % Plt Count 596 H (182-369) x10^3/uL MPV 9.1 L (9.4-12.3) fL Segmented Neutrophils 75 H (34.0-71.1) % Band Neutrophils 15 H (0.0-2.0) % Lymphocytes (Manual) 4 L (19.3-51.7) % Monocytes (Manual) 6 (4.7-12.5) % Platelet Estimate INCREASED (NORMAL) RBC Morphology ABNORMAL Anisocytosis 2+ Sodium 131 L (135-145) mmol/L Potassium 3.0 L* (3.5-5.1) mmol/L Chloride 98 (98-107) mmol/L Carbon Dioxide 23 (22-30) mmol/L Anion Gap 12.6 (5-15) MEQ/L BUN 24 H (7-17) mg/dL Creatinine 1.04 (0.52-1.04) mg/dL Estimated GFR 56.1 ML/MIN Glucose 146 H (74-106) mg/dL Lactic Acid (0.4-2.0) Calcium 8.6 (8.4-10.2) mg/dL Magnesium 2.1 (1.6-2.3) mg/dL Total Bilirubin 0.80 (0.2-1.3) mg/dL AST 23 (14-36) U/L ALT 18 (0-35) U/L Alkaline Phosphatase 162 H (38-126) U/L Serum Total Protein 6.7 (6.3-8.2) g/dL Albumin 3.7 (3.5-5.0) g/dL Lipase 20 L (23-300) U/L Procalcitonin 0.369 H (0.030-0.080) ng/mL 11/11/24 Range/Units 20:10 WBC (3.98-10.04) x10^3/uL RBC (3.93-5.22) x10^6/uL Hgb (11.2-15.7) g/dL Hct (34.1-44.9) % MCV (79.4-94.8) fL MCH (25.6-32.2) pg MCHC (32.2-35.5) g/dL RDW (11.7-14.4) % Plt Count (182-369) x10^3/uL MPV (9.4-12.3) fL Segmented Neutrophils (34.0-71.1) % Band Neutrophils (0.0-2.0) % Lymphocytes (Manual) (19.3-51.7) % Monocytes (Manual) (4.7-12.5) % Platelet Estimate (NORMAL) RBC Morphology Anisocytosis Sodium (135-145) mmol/L Potassium (3.5-5.1) mmol/L Chloride (98-107) mmol/L Carbon Dioxide (22-30) mmol/L Anion Gap (5-15) MEQ/L BUN (7-17) mg/dL Creatinine (0.52-1.04) mg/dL Estimated GFR ML/MIN Glucose (74-106) mg/dL Lactic Acid 1.9 (0.4-2.0) Calcium (8.4-10.2) mg/dL Magnesium (1.6-2.3) mg/dL Total Bilirubin (0.2-1.3) mg/dL AST (14-36) U/L ALT (0-35) U/L Alkaline Phosphatase (38-126) U/L Serum Total Protein (6.3-8.2) g/dL Albumin (3.5-5.0) g/dL Lipase (23-300) U/L Procalcitonin (0.030-0.080) ng/mL Radiology Exams: Radiology Procedures Category Date Time Status ABDOMEN AND PELVIS W/0 CONTRAS [CT] Stat Exams 11/11/24 19:45 Taken Assessment/Plan (1) Sepsis Current Visit: Yes Status: Acute Assessment & Plan: -Met criteria with HR, leukocytosis with initial WBC at 25.3, and known source of infection -LA WNL -trend WBC -reviewed at 22.3< 25.3 -Will order cxr with right infiltrate -UA -pending collection -blood cultures pending -CT reviewed consistent with colitis -continue levaquin/flagyl (2) Acute colitis Current Visit: Yes Status: Acute Assessment & Plan: -see sepsis Code(s): K52.9 - NONINFECTIVE GASTROENTERITIS AND COLITIS, UNSPECIFIED (3) Hyponatremia Current Visit: Yes Status: Acute Assessment & Plan: -IVF -sodium level reviewed and improving at 132 -tele Code(s): E87.1 - HYPO-OSMOLALITY AND HYPONATREMIA (4) Hypokalemia Current Visit: Yes Status: Acute Assessment & Plan: -Replenish potassium per protocol -potassium level reviewed at 3.5- add supplementation daily - resolved -monitor renal/lytes daily -tele Code(s): E87.6 - HYPOKALEMIA (5) Diarrhea Current Visit: Yes Status: Acute Assessment & Plan: -CDiff pending -stool culture/o&P, giardia -immodium once cdiff ruled out Code(s): R19.7 - DIARRHEA, UNSPECIFIED (6) HTN (hypertension) Current Visit: Yes Status: Acute Assessment & Plan: -soft on admission - hold bp meds for now and monitor closely Code(s): I10 - ESSENTIAL (PRIMARY) HYPERTENSION (7) Hypothyroid Current Visit: Yes Status: Acute Assessment & Plan: -continue levothyroxine Code(s): E03.9 - HYPOTHYROIDISM, UNSPECIFIED (8) Metabolic acidosis Current Visit: Yes Status: Acute Assessment & Plan: -most likely secondary to diarrhea -co2 reviewed at 18 -continue IVF supportive care -consider bicarb if worsening Code(s): E87.20 - ACIDOSIS, UNSPECIFIED (9) HLD (hyperlipidemia) Current Visit: Yes Status: Acute Assessment & Plan: -continue statin VTE: lovenox Dispo: 1-2 days Code: full Code(s): E78.5 - HYPERLIPIDEMIA, UNSPECIFIED
[2024-11-12] MEDS: FLAGYL 500 MG IVPB 500 MG/100 ML BAG IV SCH (06:28)
[2024-11-12] MEDS: Zofran 4 MG/2 ML VIAL IV PRN (07:45)
--- NOTE | 2024-11-12 08:15 | XRAY ---
Indication: Abdominal pain and diarrhea. Multiple contiguous axial images obtained through the abdomen and pelvis without contrast. Comparison: August 25, 2024 Lung bases clear again with incidental left base calcified granuloma. Heart not enlarged. Again large hiatal hernia with partial intrathoracic stomach. Noncontrasted stomach and bowel loops appear nonobstructed. New mild circumferential wall thickening ascending/transverse colon and lesser degree descending colon with pericolonic stranding favoring colitis. There is moderate hemicolon fecal debris. Again sigmoid diverticulosis and hysterectomy. No free fluid/air. Stable tiny right lobe hepatic cyst and small bilateral renal cysts. Remaining liver, gallbladder, pancreas, spleen, adrenal glands, kidneys, ureters, and bladder are unremarkable for noncontrast exam. There remains mild aortic calcifications without AAA. Osseous structures intact again with osteopenia, mild/moderate multilevel lumbar degenerative spondylosis, grade 1 L4 listhesis, and moderate levorotoscoliosis. Impression: 1. New CT features favoring colitis. No free fluid/air. 2. New right hemicolon fecal stasis. 3. Chronic findings including hiatal hernia with partial intrathoracic stomach, colonic diverticulosis, hepatic/bilateral renal cysts, arteriosclerotic disease, and chronic bony findings.
--- NOTE | 2024-11-12 08:17 | XRAY ---
Indication: Sepsis. Comparison: November 18, 2021 Portable chest demonstrates new minimal right costophrenic angle infiltrate versus atelectasis. Remaining heart and lungs unremarkable again with left lung calcified granuloma. Bony thorax intact again with osteopenia, degenerative changes, dextroscoliosis, and surgical clips base of neck.
[2024-11-12 09:25] LABS: Hematocrit 26.7 % (34.1-44.9); Hemoglobin 8.4 g/dL (11.2-15.7); Mean Cell Volume 82.9 fL (79.4-94.8); Mean Corpuscular Hemoglobin 26.1 pg (25.6-32.2); Mean Corpuscular Hgb Concent. 31.5 g/dL (32.2-35.5); Mean Platelet Volume 9.4 fL (9.4-12.3); Platelet Count 533 x10^3/uL (182-369); Red Blood Count 3.22 x10^6/uL (3.93-5.22); Red Cell Distribution Width 18.5 % (11.7-14.4); White Blood Count 22.3 x10^3/uL (3.98-10.04)
[2024-11-12] MEDS: SYNTHROID 112 MCG PO SCH (09:38)
[2024-11-12] MEDS: Zocor 10MG PO SCH (09:38)
[2024-11-12] MEDS: ENOXAPARIN SODIUM SQ SCH (09:38)
[2024-11-12 09:49] LABS: ANION GAP 12.4 MEQ/L (5-15); Calcium 7.4 mg/dL (8.4-10.2); Creatinine 1 0.89 mg/dL (0.52-1.04); EST GLOMERULAR FILTRATION RATE 67.6 ML/MIN; Potassium 3.5 mmol/L (3.5-5.1)
[2024-11-12] MEDS: Klor Con PO SCH (13:04)
[2024-11-12] MEDS: Compazine 10 MG/2 ML IV PRN (14:39)
[2024-11-12 17:04] LABS: 027 TOX PROD PRESUMPTIVE NEGATIVE (NEGATIVE)
[2024-11-12 17:27] LABS: TOXIGENIC C. DIFF ORG POSITIVE (NEGATIVE)
--- NOTE | 2024-11-13 05:28 | PCM.NOTE ---
Date and Time: 11/13/24 0528 Subjective Assessment: is a 74 year old female With past medical history significant for hypertension, hyperlipidemia, who came to ER complaining of nausea vomiting and inability to tolerate anything p.o. for last 1 week duration.Patient told me she has been sick for almost a week complaining of having vomiting without any abdominal pain. She did complain of having multiple loose bowel movement. She is not able to keep anything down. Denied any chest pain shortness of breath no other symptoms reported . In the ER initial blood pressure was 113/68 patient was afebrile with pulse of 109. As well as blood workup concern white cell count 25.3 hemoglobin 9.7 platelets 596. Sodium 131 potassium 3.0 chloride 98 bicarb 23 BUN 24 creatinine 1.04 lactic acid 1.9 magnesium 2.[address] abdomen pelvis consistent with colitis patient admitted for acute colitis. CXR with right costophrenic angle infiltrate versus atelectasis. 11/12: Met with patient bedside. Endorses continued nausea/vomiting and diarrhea (5-6 episodes this morning). Unable to tolerate a diet. Hypokalemia resolved. WBC down-trending now at 22.3. Plan for continued abx levaquin/flagyl and supportive care. 11/13: Met with patient bedside. Improvement in symptoms today. Nausea improved. No vomiting. No diarrhea overnight. Is requesting a soft diet today. WBC count improving. Acidosis and hypokalemia on labs this morning. Will start bicarb drip and potassium protocol. Plan to recheck labs this afternoon. - Review of Systems Constitutional: No Symptoms Eyes: No Symptoms Ears, Nose, & Throat: No Symptoms Respiratory: No Symptoms Cardiac: No Symptoms Abdominal/Gastrointestinal: Nausea Genitourinary Symptoms: No Symptoms Musculoskeletal: No Symptoms Skin: No Symptoms Neurological: No Symptoms Psychological: No Symptoms Endocrine: No Symptoms Hematologic/Lymphatic: No Symptoms Immunological/Allergic: No Symptoms Objective Exam General Appearance: no apparent distress Neurologic Exam: alert, oriented x 3, cooperative Skin Exam: pale Eye Exam: PERRL Ears, Nose, Throat Exam: normal ENT inspection Neck Exam: normal inspection Respiratory Exam: normal breath sounds, lungs clear Cardiovascular Exam: regular rate/rhythm, normal heart sounds Gastrointestinal/Abdomen Exam: soft, normal bowel sounds Extremity Exam: normal inspection Back Exam: normal inspection Pelvic Exam: deferred Objective Data Vital Signs: Vital Signs - 24 hr Temp Pulse Resp BP Pulse Ox 11/13/24 00:00 18 98 11/12/24 20:00 97.5 F 94 H 16 99/56 97 11/12/24 16:00 97.4 F 88 20 90/53 99 11/12/24 12:00 97.3 F 103 H 20 114/55 95 11/12/24 08:00 97.2 F 110 H 21 113/55 99 Pain Assessment - Last Documented Pain Intensity 0 Intake and Output: Intake & Output 11/10/24 11/11/24 11/12/24 11/13/24 11:59 11:59 11:59 11:59 Intake Total 888 1750 Output Total 1 Balance 888 1749 Weight 75.2 kg Lab Results: Lab Results-Last 24 Hours 11/12/24 11/12/24 11/12/24 Range/Units 07:58 07:58 16:24 WBC 22.3 H (3.98-10.04) x10^3/uL RBC 3.22 L (3.93-5.22) x10^6/uL Hgb 8.4 L (11.2-15.7) g/dL Hct 26.7 L (34.1-44.9) % MCV 82.9 (79.4-94.8) fL MCH 26.1 (25.6-32.2) pg MCHC 31.5 L (32.2-35.5) g/dL RDW 18.5 H (11.7-14.4) % Plt Count 533 H (182-369) x10^3/uL MPV 9.4 (9.4-12.3) fL Sodium 132 L (135-145) mmol/L Potassium 3.5 (3.5-5.1) mmol/L Chloride 105 (98-107) mmol/L Carbon Dioxide 18 L (22-30) mmol/L Anion Gap 12.4 (5-15) MEQ/L BUN 22 H (7-17) mg/dL Creatinine 0.89 (0.52-1.04) mg/dL Estimated GFR 67.6 ML/MIN Glucose 128 H (74-106) mg/dL Calcium 7.4 L (8.4-10.2) mg/dL C. difficile Screen POSITIVE (NEGATIVE) C.difficile [id number] PRESUMPTIVE NEGATIVE (NEGATIVE) Radiology Exams: Radiology Procedures Category Date Time Status ABDOMEN AND PELVIS W/0 CONTRAS [CT] Stat Exams 11/11/24 19:45 Completed CHEST 1 VIEW (PORTABLE) Routine Exams 11/12/24 07:00 Completed Assessment/Plan (1) Sepsis Current Visit: Yes Status: Acute Assessment & Plan: -Met criteria with HR, leukocytosis with initial WBC at 25.3, and known source of infection -LA WNL -trend WBC -reviewed at 22.3< 25.3 - cxr with right infiltrate -UA -pending collection -blood cultures pending -CT reviewed consistent with colitis -continue levaquin/flagyl 11/13: -WBC reviewed and improved at 13.7 -continue levaquin/flagyl -FLD- ADAT -bcult with NGTD -CDiff negative (2) Acute colitis Current Visit: Yes Status: Acute Assessment & Plan: -see sepsis Code(s): K52.9 - NONINFECTIVE GASTROENTERITIS AND COLITIS, UNSPECIFIED (3) Hyponatremia Current Visit: Yes Status: Acute Assessment & Plan: -IVF -sodium level reviewed and improving at 132 -tele Code(s): E87.1 - HYPO-OSMOLALITY AND HYPONATREMIA (4) Hypokalemia Current Visit: Yes Status: Acute Assessment & Plan: -Replenish potassium per protocol -potassium level reviewed at 3.5- add supplementation daily - resolved -monitor renal/lytes daily -tele 11/13: -Replenish per protocol, potassium level reviewed at 3.1 -recheck this afternoon Code(s): E87.6 - HYPOKALEMIA (5) Diarrhea Current Visit: Yes Status: Acute Assessment & Plan: -CDiff pending -stool culture/o&P, giardia -immodium once cdiff ruled out 11/13: -Diarrhea resolved -CDiff negative Code(s): R19.7 - DIARRHEA, UNSPECIFIED (6) HTN (hypertension) Current Visit: Yes Status: Acute Assessment & Plan: -soft on admission - hold bp meds for now and monitor closely Code(s): I10 - ESSENTIAL (PRIMARY) HYPERTENSION (7) Hypothyroid Current Visit: Yes Status: Acute Assessment & Plan: -continue levothyroxine Code(s): E03.9 - HYPOTHYROIDISM, UNSPECIFIED (8) Metabolic acidosis Current Visit: Yes Status: Acute Assessment & Plan: -most likely secondary to diarrhea -co2 reviewed at 18 -continue IVF supportive care -consider bicarb if worsening 11/13: -Co2 level reviewed at 16- will start bicarb drip -Recheck labs this afternoon Code(s): E87.20 - ACIDOSIS, UNSPECIFIED (9) HLD (hyperlipidemia) Current Visit: Yes Status: Acute Assessment & Plan: -continue statin VTE: lovenox Dispo: 1-2 days Code: full (2) Acute colitis Current Visit: Yes Status: Acute Code(s): K52.9 - NONINFECTIVE GASTROENTERITIS AND COLITIS, UNSPECIFIED (3) Hyponatremia Current Visit: Yes Status: Acute Code(s): E87.1 - HYPO-OSMOLALITY AND HYPONATREMIA (4) Hypokalemia Current Visit: Yes Status: Acute Code(s): E87.6 - HYPOKALEMIA (5) Diarrhea Current Visit: Yes Status: Acute Code(s): R19.7 - DIARRHEA, UNSPECIFIED (6) HTN (hypertension) Current Visit: Yes Status: Acute Code(s): I10 - ESSENTIAL (PRIMARY) HYPERTENSION (7) Hypothyroid Current Visit: Yes Status: Acute Code(s): E03.9 - HYPOTHYROIDISM, UNSPECIFIED (8) Metabolic acidosis Current Visit: Yes Status: Acute Code(s): E87.20 - ACIDOSIS, UNSPECIFIED (9) HLD (hyperlipidemia) Current Visit: Yes Status: Acute Code(s): E78.5 - HYPERLIPIDEMIA, UNSPECIFIED
[2024-11-13 07:06] LABS: BASOPHIL % 0.4 % (0.1-1.2); Basophil (Absolute #) 0.05 x10^3/uL (0.01-0.08); Eosinophil % 2.3 % (0.7-5.8); Eosinophil (Absolute #) 0.32 x10^3/uL (0.04-0.36); Hematocrit 26.8 % (34.1-44.9); Hemoglobin 8.4 g/dL (11.2-15.7); IMMATURE GRAN # 0.05 x10^3u/L (0.001-0.031); IMMATURE GRAN % 0.4 % (0.001-0.429); Lymphocyte (Absolute #) 0.83 x10^3/uL (1.18-3.74); Lymphocytes % 6.1 % (19.3-51.7); Mean Cell Volume 82.5 fL (79.4-94.8); Mean Corpuscular Hemoglobin 25.8 pg (25.6-32.2); Mean Corpuscular Hgb Concent. 31.3 g/dL (32.2-35.5); Mean Platelet Volume 9.2 fL (9.4-12.3); Monocytes % 10.3 % (4.7-12.5); Neutrophil % 80.5 % (34.0-71.1); Platelet Count 564 x10^3/uL (182-369); Red Blood Count 3.25 x10^6/uL (3.93-5.22); Red Cell Distribution Width 18.6 % (11.7-14.4); White Blood Count 13.7 x10^3/uL (3.98-10.04)
[2024-11-13 07:21] LABS: ALBUMIN 2.7 g/dL (3.5-5.0); ANION GAP 10.4 MEQ/L (5-15); BILIRUBIN,TOTAL 0.5 mg/dL (0.2-1.3); Calcium 7.2 mg/dL (8.4-10.2); Creatinine 1 0.71 mg/dL (0.52-1.04); EST GLOMERULAR FILTRATION RATE 88.6 ML/MIN; Total Protein 5.3 g/dL (6.3-8.2)
[2024-11-13 07:22] LABS: Appearance Clear (Clear); Ketones Negative (Negative); Leukocyte Esterase Small (Negative); Nitrite Negative (Negative); Ph 5.5 (4.6-8.0); Protein,Urine Dip 30 (Negative); Urobilinogen 0.2 mg/dL (0.2)
[2024-11-13 07:23] LABS: Bacteria Few /HPF (None Seen); Bilirubin Small (Negative); Blood Negative (Negative); Epithelial Cells Few /HPF (None Seen); Glucose, Urine Negative (Negative); Mucus Rare /HPF (NEGATIVE); RBC 0-2 /HPF (0-5)
[2024-11-13 07:26] LABS: Potassium 3.1 mmol/L (3.5-5.1)
[2024-11-13] MEDS: Sodium Bicarbonate 50 MEQ/50 ML VIAL*** 150 MEQ in Dextrose 5%/Water IV Soln. 1000 ML 1... IV SCH (08:24)
[2024-11-13] MEDS: POTASSIUM CHLORIDE 20 mEq IN WATER 100ML 100 ML IV SCH (08:24)
[2024-11-13 15:26] LABS: ANION GAP 9.3 MEQ/L (5-15); Creatinine 1 0.72 mg/dL (0.52-1.04); EST GLOMERULAR FILTRATION RATE 87.1 ML/MIN
[2024-11-13 15:30] LABS: Potassium 2.9 mmol/L (3.5-5.1)
[2024-11-13] MEDS: K-LYTE PO SCH (16:50)
[2024-11-13] MEDS ORDERED: Klor Con PO SCH (18:00)
[2024-11-14 05:49] LABS: Absolute Neutrophil Ct (ANC) 6.78 x10^3/uL (1.56-6.13); BASOPHIL % 0.7 % (0.1-1.2); Basophil (Absolute #) 0.06 x10^3/uL (0.01-0.08); Eosinophil % 3.5 % (0.7-5.8); Hematocrit 27.5 % (34.1-44.9); Hemoglobin 8.7 g/dL (11.2-15.7); IMMATURE GRAN # 0.04 x10^3u/L (0.001-0.031); IMMATURE GRAN % 0.5 % (0.001-0.429); Lymphocyte (Absolute #) 0.76 x10^3/uL (1.18-3.74); Lymphocytes % 8.8 % (19.3-51.7); Mean Cell Volume 82.3 fL (79.4-94.8); Mean Corpuscular Hgb Concent. 31.6 g/dL (32.2-35.5); Monocyte (Absolute #) 0.65 x10^3/uL (0.24-0.86); Monocytes % 7.6 % (4.7-12.5); Neutrophil % 78.9 % (34.0-71.1); Platelet Count 614 x10^3/uL (182-369); Red Blood Count 3.34 x10^6/uL (3.93-5.22); Red Cell Distribution Width 18.9 % (11.7-14.4); White Blood Count 8.6 x10^3/uL (3.98-10.04)
[2024-11-14 07:05] LABS: ALBUMIN 2.9 g/dL (3.5-5.0); ANION GAP 10.5 MEQ/L (5-15); BILIRUBIN,TOTAL 0.4 mg/dL (0.2-1.3); Calcium 7.8 mg/dL (8.4-10.2); Creatinine 1 0.78 mg/dL (0.52-1.04); EST GLOMERULAR FILTRATION RATE 79.2 ML/MIN; MAGNESIUM 2.2 mg/dL (1.6-2.3); Potassium 3.7 mmol/L (3.5-5.1); Total Protein 5.6 g/dL (6.3-8.2)
[2024-11-14 11:24] VITALS: BP 90/57; PULSE 89; TEMP 98; O2SAT 97
[2024-11-14 12:04] VITALS: RESP 21
--- NOTE | 2024-11-14 12:22 | PCM.DS ---
Discharge Summary Date of Admission: 11/11/24 22:56 Date of Discharge: 11/14/24 Admitting Physician: NELSON CHURCHILL MD Primary Care Provider: GOLDEN,JOHNATHAN Allergies Allergies Penicillins Allergy (Intermediate, Verified 09/17/24 18:42) [facility] Summary - Hospital Course Hospital Course: is a 74 year old female With past medical history significant for hypertension, hyperlipidemia, who came to ER on 11/11/24 complaining of nausea vomiting and inability to tolerate anything p.o. for last 1 week duration. She reported she has been sick for almost a week complaining of having vomiting without any abdominal pain. She did complain of having multiple loose bowel movement. She was not able to keep anything down. Denied any chest pain short ness of breath no other symptoms reported. In the ER initial blood pressure was 113/68 patient was afebrile with pulse of 109. As well as blood workup concern white cell count 25.3 hemoglobin 9.7 platelets 596. Sodium 131 potassium 3.0 chloride 98 bicarb 23 BUN 24 creatinine 1.04 lactic acid 1.9 magnesium 2.[address] abdomen pelvis consistent with colitis patient admitted for acute colitis. CXR with right costophrenic angle infiltrate versus atelectasis. She has improvement in symptoms today. Nausea improved and no vomiting. No diarrhea overnight. Tolerated a soft diet today. She is requesting to d/c home. Labs overall improved. Platelets 614 and she reports she has an upcoming appointment with Dr. WYMAN- oncology/hematology. Will continue OP anti biotics. She denies CP, SOB, abd pain, N/V/D. - Vitals & Intake/Output Vital Signs: Vital Signs Temperature 98.0 F 11/14/24 11:24 Pulse Rate 89 11/14/24 11:24 Respiratory Rate 21 11/14/24 12:00 Blood Pressure 90/57 11/14/24 11:24 O2 Sat by Pulse Oximetry 97 11/14/24 11:24 Intake & Output: Intake & Output 11/12/24 11/13/24 11/14/24 11/15/24 11:59 11:59 11:59 11:59 Intake Total 888 3610 2616 Output Total 1 Balance 888 1349 2616 Weight 75.2 kg - Lab Result Diagrams: 11/14/24 05:50 11/14/24 05:50 Lab Results-Last 24 Hrs: Lab Results-Last 24 Hours 11/13/24 11/13/24 11/13/24 Range/Units 15:05 15:32 20:55 WBC (3.98-10.04) x10^3/uL RBC (3.93-5.22) x10^6/uL Hgb (11.2-15.7) g/dL Hct (34.1-44.9) % MCV (79.4-94.8) fL MCH (25.6-32.2) pg MCHC (32.2-35.5) g/dL RDW (11.7-14.4) % Plt Count (182-369) x10^3/uL MPV (9.4-12.3) fL Gran % (34.0-71.1) % Immature Gran % (Auto) (0.001-0.429) % Nucleat RBC Rel Count (0.00-0.2) % Eos # (Auto) (0.04-0.36) x10^3/uL Immature Gran # (Auto) (0.001-0.031) x10^3u/L Absolute Lymphs (auto) (1.18-3.74) x10^3/uL Absolute Monos (auto) (0.24-0.86) x10^3/uL Absolute Nucleated RBC (0.00-0.012) x10^3u/L Lymphocytes % (19.3-51.7) % Monocytes % (4.7-12.5) % Eosinophils % (0.7-5.8) % Basophils % (0.1-1.2) % Absolute Granulocytes (1.56-6.13) x10^3/uL Basophils # (0.01-0.08) x10^3/uL Sodium 134 L (135-145) mmol/L Potassium 2.9 L* 3.8 D (3.5-5.1) mmol/L Chloride 106 (98-107) mmol/L Carbon Dioxide 22 (22-30) mmol/L Anion Gap 9.3 (5-15) MEQ/L BUN 8 (7-17) mg/dL Creatinine 0.72 (0.52-1.04) mg/dL Estimated GFR 87.1 ML/MIN Glucose 123 H (74-106) mg/dL Calcium 7.0 L (8.4-10.2) mg/dL Magnesium 2.0 (1.6-2.3) mg/dL Total Bilirubin (0.2-1.3) mg/dL AST (14-36) U/L ALT (0-35) U/L Alkaline Phosphatase (38-126) U/L Serum Total Protein (6.3-8.2) g/dL Albumin (3.5-5.0) g/dL 11/14/24 11/14/24 Range/Units 05:50 05:50 WBC 8.6 (3.98-10.04) x10^3/uL RBC 3.34 L (3.93-5.22) x10^6/uL Hgb 8.7 L (11.2-15.7) g/dL Hct 27.5 L (34.1-44.9) % MCV 82.3 (79.4-94.8) fL MCH 26.0 (25.6-32.2) pg MCHC 31.6 L (32.2-35.5) g/dL RDW 18.9 H (11.7-14.4) % Plt Count 614 H (182-369) x10^3/uL MPV 9.0 L (9.4-12.3) fL Gran % 78.9 H (34.0-71.1) % Immature Gran % (Auto) 0.5 H (0.001-0.429) % Nucleat RBC Rel Count 0.0 (0.00-0.2) % Eos # (Auto) 0.30 (0.04-0.36) x10^3/uL Immature Gran # (Auto) 0.04 H (0.001-0.031) x10^3u/L Absolute Lymphs (auto) 0.76 L (1.18-3.74) x10^3/uL Absolute Monos (auto) 0.65 (0.24-0.86) x10^3/uL Absolute Nucleated RBC 0.00 (0.00-0.012) x10^3u/L Lymphocytes % 8.8 L (19.3-51.7) % Monocytes % 7.6 (4.7-12.5) % Eosinophils % 3.5 (0.7-5.8) % Basophils % 0.7 (0.1-1.2) % Absolute Granulocytes 6.78 H (1.56-6.13) x10^3/uL Basophils # 0.06 (0.01-0.08) x10^3/uL Sodium 136 (135-145) mmol/L Potassium 3.7 (3.5-5.1) mmol/L Chloride 106 (98-107) mmol/L Carbon Dioxide 22 (22-30) mmol/L Anion Gap 10.5 (5-15) MEQ/L BUN 6 L (7-17) mg/dL Creatinine 0.78 (0.52-1.04) mg/dL Estimated GFR 79.2 ML/MIN Glucose 99 (74-106) mg/dL Calcium 7.8 L (8.4-10.2) mg/dL Magnesium 2.2 (1.6-2.3) mg/dL Total Bilirubin 0.40 (0.2-1.3) mg/dL AST 22 (14-36) U/L ALT 17 (0-35) U/L Alkaline Phosphatase 107 (38-126) U/L Serum Total Protein 5.6 L (6.3-8.2) g/dL Albumin 2.9 L (3.5-5.0) g/dL Micro Results-Entire Visit: Microbiology 11/12/24 16:23 Ova and Parasite Result 1 - Final Stool Not Reportable Ova and Parasite Result 2 - Final Not Reportable Ova and Parasite Result 3 - Final Not Reportable Ova and Parasite Result 4 - Final Not Reportable Antimicrobic Susceptibility - Final Not Reportable 11/11/24 20:40 Blood Culture - Preliminary Blood - Procedures and Test Procedures and Tests throughout Hospitalization: Therapy Orders & Screens 11/12/24 00:43 Respiratory Therapy Consult ONCE Comment: Reason For Exam: Diagnosis: Infectious colitis, hypokalemia Discharge Exam General Appearance: no apparent distress, alert Neurologic Exam: alert, oriented x 3, cooperative, normal mood/affect, nml cerebellar function, sensation nml, No motor deficits Eye Exam: PERRL, EOMI, eyes nml inspection Ears, Nose, Throat Exam: normal ENT inspection, pharynx normal, moist mucous membranes Neck Exam: normal inspection, non-tender, supple, full range of motion Respiratory Exam: normal breath sounds, lungs clear, No respiratory distress Cardiovascular Exam: regular rate/rhythm, normal heart sounds Gastrointestinal/Abdomen Exam: soft, No tenderness, No mass Pelvic Exam: deferred Rectal Exam: deferred Back Exam: normal inspection, normal range of motion, No CVA tenderness, No vertebral tenderness Extremity Exam: normal inspection, normal range of motion Skin Exam: normal color, warm, dry Final Diagnosis/Problem List - Final Discharge Diagnosis/Problem (1) Sepsis Current Visit: Yes Status: Acute Assessment & Plan: - Met criteria with HR, leukocytosis with initial WBC at 25.3, and known source of infection - LA WNL - CDiff negative - CBC, CMP reviewed. - BC x1 negative, other culture cancelled by lab - IV antibiotics (2) Acute colitis Current Visit: Yes Status: Acute Assessment & Plan: - IV antibiotocs - CBC, CMP reviewed - BC x1 negative- other cancelled by lab -CT reviewed consistent with colitis -CDiff negative Code(s): K52.9 - NONINFECTIVE GASTROENTERITIS AND COLITIS, UNSPECIFIED (3) Diarrhea Current Visit: Yes Status: Resolved Assessment & Plan: -Diarrhea resolved -CDiff negative Code(s): R19.7 - DIARRHEA, UNSPECIFIED (4) HTN (hypertension) Current Visit: Yes Status: Chronic Assessment & Plan: - stable - Check home BP and hold BP med if < 120/80 Code(s): I10 - ESSENTIAL (PRIMARY) HYPERTENSION (5) Hyperlipidemia Current Visit: No Status: Chronic Assessment & Plan: - continue statin Code(s): E78.5 - HYPERLIPIDEMIA, UNSPECIFIED (6) Hypokalemia Current Visit: Yes Status: Resolved Assessment & Plan: - resolved Code(s): E87.6 - HYPOKALEMIA (7) Hyponatremia Current Visit: Yes Status: Resolved Assessment & Plan: - resolved Code(s): E87.1 - HYPO-OSMOLALITY AND HYPONATREMIA (8) Hypothyroid Current Visit: Yes Status: Chronic Assessment & Plan: -continue levothyroxine Code(s): E03.9 - HYPOTHYROIDISM, UNSPECIFIED (9) Metabolic acidosis Current Visit: Yes Status: Resolved Assessment & Plan: - resolved Code(s): E87.20 - ACIDOSIS, UNSPECIFIED - Discharge Discharge Date: 11/14/24 Disposition: Home, Self-Care Condition: Stable Prescriptions: Continue Carvedilol 12.5 mg [Coreg 12.5 mg] 12.5 mg PO BID Levothyroxine Sodium 100 Mcg [Synthroid 100 Mcg] 112 mcg PO DAILY Atorvastatin Calcium 10 mg PO DAILY hydroCHLOROthiazide [Hydrochlorothiazide] 12.5 mg PO DAILY Alendronate Sodium 70 mg [Fosamax 70 MG] 70 mg PO WEEKLY Additional Instructions: Check home Blood Pressure and hold meds if Blood pressure is < 120/80 Follow up with: MICHAEL WYMAN [CONSULTING PHYSICIAN] - 11/23/24 11:00 am JOHNATHAN FRANKS MD [Primary Care Provider] - 11/25/24 2:30 pm ([facility])
== END 2024-11-14 13:20 | disposition home or self-care (01) ==
LOC: ED 16:31 → MED SURG 22:56
PROVIDERS: ADMIT Internal Medicine; ATTEND Internal Medicine
DX: A41.9 Sepsis, unspecified organism (principal); K52.9 Noninfective gastroenteritis and colitis, unspecified; I10 Essential (primary) hypertension; E78.5 Hyperlipidemia, unspecified; E87.6 Hypokalemia; E87.1 Hypo-osmolality and hyponatremia; E03.9 Hypothyroidism, unspecified; E87.20 Acidosis, unspecified; R11.2 Nausea with vomiting, unspecified; I25.2 Old myocardial infarction; D72.829 Elevated white blood cell count, unspecified; Z79.899 Other long term (current) drug therapy
CPT/HCPCS: 36415; 71045; 74176; 80048; 80053; 81001; 83605; 83690; 83735; 84132; 84145; 85025; 85027; 87040; 87045; 87046; 87177; 87209; 87328; 87329; 87427; 87493; 96360; 96374; 96375; 99285; G0378; Q3014; 99284; J1650; J1956; J2405; J3480; A9270-GY